=== PATIENT | female | born 1985 | race Caucasian/White ===

== ENCOUNTER 2017-04-06 18:09 | Emergency (ER) | payer BC, OTHER ==
[2017-04-06 18:25] VITALS: BP 136/63; PULSE 91; TEMP 97.1; BMI 33.9
[2017-04-06 18:44] LABS: BASOPHIL 0.3 % (0-2.0); EOSINOPHIL 1.1 % (0-4.5); MCH 28.9 pg (25.7-33.7); MCHC 33.3 g/dl (32.0-36.0); MEAN CELL VOLUME 86.7 fl (80-96); NEUTROPHILS 78.3 % (42.8-82.8); RDW 15.1 % (11.6-15.6)
[2017-04-06 19:39] LABS: HIV 1 & 2 AB NEGATIVE; HIV 1 AGp24 NEGATIVE
--- NOTE | 2017-04-06 20:22 | PDOC ---
History of Present Illness - General History Source: Patient Exam Limitations: No Limitations, Physical Impairment - History of Present Illness Initial Comments: 31 yo F who is 6 weeks with a PMHx of miscarriage, UTI, ovarian cysts, and vertigo presents with nonradiating abdominal pain and vaginal bleeding for one day. Patient states her abdominal discomfort is a 10/10 but her abdominal pain is rated 5/10. Patient states she has been spotting for 2 weeks but started heavily bleeding today and required 1 diaper to absorb the blood. Patient describes the blood as brown in color. Patient reports it Feels like her ovaries want to pop out. Patient had 8 previous pregnancies in total (4 abortions, 1 miscarriage, 3 current children). Patient states this pain is similar to her previous miscarriage in 2009. Patient also endorses vomiting green vomit yesterday. Patient denies chest pain, fevers, and chills. Patient denies previous c sections. Patient states during her previous miscarriage she presented with both fevers and chills. Allergies: NKDA Social Hx: Cigarettes, Marijuana (smoked yesterday to sleep) <Racheal Bueno - Last Filed: 04/06/17 20:36> <Cecilia Willams - Last Filed: 04/06/17 20:38> - General Chief Complaint: Vaginal Bleeding Stated Complaint: VAGINAL BLEEDING Time Seen by Provider: 04/06/17 18:21 Past History <Racheal Bueno - Last Filed: 04/06/17 20:36> - Past Medical History Asthma: No Cancer: No Cardiac Disorders: No Diabetes: No HTN: No Seizures: No Thyroid Disease: No - Reproductive History Therapeutic (s) & number: No (4) Spontaneous : 1 - Immunization History Td Vaccination: No Immunization Up to Date: No - Psycho/Social/Smoking Cessation Hx Anxiety: No Suicidal Ideation: No Smoking Status: Yes Smoking History: Never smoked Number of Cigarettes Smoked Daily: 4 Information on smoking cessation initiated: No Hx Alcohol Use: No Drug/Substance Use Hx: Yes (marijuana) Substance Use Type: Marijuana Hx Substance Use Treatment: No <Cecilia Willams - Last Filed: 04/06/17 20:38> - Past Medical History Allergies/Adverse Reactions: Allergies Allergy/AdvReac Type Severity Reaction Status Date / Time No Known Allergies Allergy Verified 04/06/17 18:25 Home Medications: Ambulatory Orders NK [No Known Home Medication] 04/06/17 Review of Systems - Review of Systems Able to Perform ROS?: Yes Comments:: 04/06/17 20:24 CONSTITUTIONAL: Absent: fever, chills, diaphoresis, generalized weakness, malaise, loss of appetite HEENT: Absent: rhinorrhea, nasal congestion, throat pain, throat swelling, difficulty swallowing, mouth swelling, ear pain, eye pain, visual Changes CARDIOVASCULAR: Absent: chest pain, syncope, palpitations, irregular heart rate , lightheadedness, peripheral edema RESPIRATORY: Absent: cough, shortness of breath, dyspnea with exertion, orthopnea, wheezing, stridor, hemoptysis GASTROINTESTINAL: +vomiting (x1), abdominal pain. Absent:abdominal distension, diarrhea, constipation, melena, hematochezia GENITOURINARY: +Vaginal bleeding. Absent: dysuria, frequency, urgency, hesitancy , hematuria, flank pain, genital pain MUSCULOSKELETAL: Absent: myalgia, arthralgia, joint swelling SKIN: Absent: rash , itching, pallor HEMATOLOGIC/IMMUNOLOGIC: Absent: easy bleeding, easy bruising, lymphadenopathy, frequent infections ENDOCRINE: Absent: unexplained weight gain, unexplained weight loss, heat intolerance, cold intolerance NEUROLOGIC: Absent: headache, focal weakness or paresthesia, dizziness, gait not assessed, seizure, mental status changes, bladder or bowel incontinence PSYCHIATRIC: Absent: anxiety, depression, suicidal or homicidal ideation, hallucination <Racheal Bueno - Last Filed: 04/06/17 20:36> *Physical Exam - Vital Signs Last Vital Signs Temp Pulse Resp BP Pulse Ox 97.1 F L 91 H 20 136/63 98 04/06/17 18:22 04/06/17 18:22 04/06/17 18:22 04/06/17 18:22 04/06/17 18:22 - Physical Exam Comments: GENERAL: Well developed, well nourished. Awake and alert. No acute distress. HEENT: Normocephalic, atraumatic. PERRLA, EOMI. No conjunctival pallor. Sclera are non- icteric. Moist mucous membranes. Oropharynx is clear. NECK: Supple. Full ROM. No JVD. Carotid pulses 2+ and symmetric, without bruits. No thyromegaly. No lymphadenopathy. CARDIOVASCULAR: Regular rate and rhythm. No murmurs, rubs, or gallops. Distal pulses are 2+ and symmetric. PULMONARY: No evidence of respiratory distress. Lungs clear to auscultation bilaterally. No wheezing, rales or rhonchi. ABDOMINAL: Soft. Non-tender. Non-distended. No rebound or guarding. No organomegaly. Normoactive bowel sounds. MUSCULOSKELETAL Normal range of motion at all joints. No bony deformities or tenderness. No CVA tenderness. Vaginal bleeding wearing a diaper EXTREMITIES: No cyanosis. No clubbing. No edema. No calf tenderness. SKIN: Warm and dry. Normal capillary refill. No rashes. No jaundice. NEUROLOGICAL: Alert, awake, appropriate. Cranial nerves 2-12 intact. No deficits to light touch and temperature in face, upper extremities and lower extremities. No motor deficits in the in face, upper extremities and lower extremities. Normoreflexic in the upper and lower extremities. Normal speech. Toes are down- going bilaterally. Gait is normal without ataxia. PSYCHIATRIC: Cooperative. Good eye contact. Appropriate mood and affect. <Rahceal Bueno - Last Filed: 04/06/17 20:36> - Vital Signs Last Vital Signs Temp Pulse Resp BP Pulse Ox 97.1 F L 91 H 20 136/63 98 04/06/17 18:22 04/06/17 18:22 04/06/17 18:22 04/06/17 18:22 04/06/17 18:22 <Cecilia Willams - Last Filed: 04/06/17 20:38> ED Treatment Course - LABORATORY CBC & Chemistry Diagram: 04/06/17 18:35 - ADDITIONAL ORDERS Additional order review: Laboratory Results 04/06/17 04/06/17 18:35 18:26 Beta HCG, Quant 36860.0 Blood Type O POSITIVE Antibody Screen Negative 04/06/17 18:35 RBC 4.67 D MCV 86.7 MCHC 33.3 RDW 15.1 MPV 8.0 Neutrophils % 78.3 Lymphocytes % 15.4 Monocytes % 4.9 Eosinophils % 1.1 Basophils % 0.3 D <Racheal Bueno - Last Filed: 04/06/17 20:36> - LABORATORY CBC & Chemistry Diagram: 04/06/17 18:35 - ADDITIONAL ORDERS Additional order review: Laboratory Results 04/06/17 04/06/17 18:35 18:26 Beta HCG, Quant [id number] Blood Type O POSITIVE Antibody Screen Negative 04/06/17 18:35 RBC 4.67 D MCV 86.7 MCHC 33.3 RDW 15.1 MPV 8.0 Neutrophils % 78.3 Lymphocytes % 15.4 Monocytes % 4.9 Eosinophils % 1.1 Basophils % 0.3 D - RADIOLOGY Radiology Studies Ordered: Category Date Time Status TRANSVAGINAL US PREG [US] Stat Ultrasound 04/06/17 18:26 Completed <Cecilia Willams - Last Filed: 04/06/17 20:38> *DC/Admit/Observation/Transfer - Attestations Scribe Attestion: Documentation prepared by Racheal Bueno, acting as medical facilities section director for Cecilia Willams MD/DO. <Racheal Bueno - Last Filed: 04/06/17 20:36> <Cecilia Willams - Last Filed: 04/06/17 20:38> Diagnosis at time of Disposition: Threatened - Discharge Dispostion Disposition: HOME Condition at time of disposition: Stable - Patient Instructions Printed Discharge Instructions: DI for Threatened Additional Instructions: please followup with your business economist
--- NOTE | 2017-04-06 20:23 | PDOC ---
History of Present Illness - General Chief Complaint: Vaginal Bleeding Stated Complaint: VAGINAL BLEEDING Time Seen by Provider: 04/06/17 18:21 History Source: Patient Exam Limitations: No Limitations - History of Present Illness Initial Comments: 31 yo F who is 6 weeks with a PMHx of miscarriage, UTI, ovarian cysts, and vertigo presents with nonradiating abdominal pain and vaginal bleeding for one day. Patient states her abdominal discomfort is a 10/10 but her abdominal pain is rated 5/10. Patient states she has been spotting for 2 weeks but started heavily bleeding today and required 1 diaper to absorb the blood. Patient describes the blood as brown in color. Patient reports it Feels like her ovaries want to pop out. Patient had 8 previous pregnancies in total (4 abortions, 1 miscarriage, 3 current children). Patient states this pain is similar to her previous miscarriage in 2009. Patient also endorses vomiting green vomit yesterday. Patient denies chest pain, fevers, and chills. Patient denies previous c sections. Patient states during her previous miscarriage she presented with both fevers and chills. Allergies: NKDA Social Hx: Cigarettes, Marijuana (smoked yesterday to sleep) Past History - Past Medical History Allergies/Adverse Reactions: Allergies Allergy/AdvReac Type Severity Reaction Status Date / Time No Known Allergies Allergy Verified 04/06/17 18:25 Home Medications: Ambulatory Orders NK [No Known Home Medication] 04/06/17 Asthma: No Cancer: No Cardiac Disorders: No Diabetes: No HTN: No Seizures: No Thyroid Disease: No - Reproductive History Therapeutic (s) & number: No (4) Spontaneous : 1 - Immunization History Td Vaccination: No Immunization Up to Date: No - Psycho/Social/Smoking Cessation Hx Anxiety: No Suicidal Ideation: No Smoking Status: Yes Smoking History: Never smoked Number of Cigarettes Smoked Daily: 4 Information on smoking cessation initiated: No Hx Alcohol Use: No Drug/Substance Use Hx: Yes (marijuana) Substance Use Type: Marijuana Hx Substance Use Treatment: No *Physical Exam - Vital Signs Last Vital Signs Temp Pulse Resp BP Pulse Ox 97.1 F L 91 H 20 136/63 98 04/06/17 18:22 04/06/17 18:22 04/06/17 18:22 04/06/17 18:22 04/06/17 18:22 ED Treatment Course - LABORATORY CBC & Chemistry Diagram: 04/06/17 18:35 - ADDITIONAL ORDERS Additional order review: Laboratory Results 04/06/17 04/06/17 18:35 18:26 Beta HCG, Quant [id number] Blood Type O POSITIVE Antibody Screen Negative 04/06/17 18:35 RBC 4.67 D MCV 86.7 MCHC 33.3 RDW 15.1 MPV 8.0 Neutrophils % 78.3 Lymphocytes % 15.4 Monocytes % 4.9 Eosinophils % 1.1 Basophils % 0.3 D
[2017-04-06 21:08] LABS: PLATELET COUNT 191 K/MM3 (134-434)
[2017-04-06 21:09] LABS: PLATELET ESTIMATE ADEQUATE (NORMAL)
== END 2017-04-06 20:44 | disposition home or self-care (01) ==
LOC: JER 18:09
DX: O20.0 Threatened abortion (principal); O34.81 Maternal care for other abnormalities of pelvic organs, first trimester; N83.292 Other ovarian cyst, left side; Z3A.01 Less than 8 weeks gestation of pregnancy
CPT/HCPCS: 36415; 76817-TC; 84702; 85025; 86850; 86900; 86901; 87389; 99284-25